=== PATIENT | male | born 1970 | race Caucasian/White ===

== ENCOUNTER 2017-11-29 16:58 | Emergency (ER) | payer MEDICAID ==
--- NOTE | 2017-11-29 17:47 | Emergency Department Record ---
History of Present Illness - General Stated Complaint: RT ANKLE INJ Time Seen by Provider: 11/29/17 17:34 Source: Patient Mode of Arrival: Ambulatory Limitations: No limitations - History of Present Illness Initial Comments: 47 yo male presents to ED for evaluation of right lower extremity pain after injury 1.5 weeks ago. Patient reports that he broke the skin of the anterior lower extremity 1.5 weeks ago while mowing the grass (dull part of the mower), reports pain to the area since his injury. Patient reports previous fracture and ORIF to the ankle approximately 15 years ago as well. Patient reports that he has been able to walk on the leg but that it is painful. Complaint: Leg injury Onset/Timin -: Days(s) Injury: Leg: Right Type of Injury: Blunt Place: Home Severity: Moderate Improves With: Rest Worsens With: Palpation, Weight bearing Context: Direct blow - Related Data Home Medications Medication Instructions Recorded Confirmed Last Taken Aspirin Chewable 81 mg PO NOW 11/29/17 11/29/17 11/29/17 Brexpiprazole [Rexulti] 2 mg PO ASDIR 11/29/17 11/29/17 11/29/17 Clonazepam [Klonopin] 2 mg PO ASDIR 11/29/17 11/29/17 11/29/17 Divalproex Sodium [Depakote] 250 mg PO ASDIR 11/29/17 11/29/17 11/29/17 Hydroxyzine Pamoate [Vistaril] 25 mg PO Q6H 11/29/17 11/29/17 Unknown Levothyroxine Sodium 75 mcg PO DAILY 11/29/17 11/29/17 11/29/17 Lisinopril 20 mg PO DAILY 11/29/17 11/29/17 11/29/17 Terazosin HCl 2 mg PO ASDIR 11/29/17 11/29/17 11/29/17 Trazodone HCl 150 mg PO BID 11/29/17 11/29/17 11/29/17 Venlafaxine HCl [Effexor Xr] 150 mg PO DAILY 11/29/17 11/29/17 11/29/17 Previous Rx's Medication Instructions Recorded Naproxen [Naprosyn] 500 mg PO Q12H #30 tab. 11/29/17 Allergies Allergy/AdvReac Type Severity Reaction Status Date / Time cephalexin [From Keflex] Allergy HIVES Verified 11/29/17 19:10 meperidine [From Demerol] AdvReac ALTERED Verified 11/29/17 19:10 MENTAL STATUS Review of Systems Constitutional: Denies: Chills, Fever, Malaise, Night sweats Eyes: Denies: Eye discharge, Eye pain ENT: Denies: Congestion, Ear pain, Epistaxis Respiratory: Denies: Cough, Dyspnea Cardiovascular: Denies: Chest pain, Dyspnea on exertion Endocrine: Denies: Fatigue, Heat or cold intolerance Gastrointestinal: Denies: Abdominal pain, Nausea, Vomiting Genitourinary: Denies: Incontinence, Retention Musculoskeletal: Reports: Arthralgia. Denies: Back pain, Gout, Joint swelling Skin: Denies: Bruising, Change in color Neurological: Denies: Abnormal gait, Confusion, Headache Psychiatric: Denies: Anxiety Hematological/Lymphatic: Denies: Anemia, Blood Clots Physical Exam - General General Appearance: Alert, Oriented x3, Cooperative, Mild distress Limitations: No limitations - Head Head exam: Atraumatic, Normocephalic, Normal inspection Head exam detail: negative: Abrasion, Contusion, Cartagena's sign, General tenderness, Hematoma, Laceration - Eye Eye exam: Normal appearance. negative: Conjunctival injection, Periorbital swelling, Periorbital tenderness, Scleral icterus - ENT Ear exam: negative: Auricular hematoma, Auricular trauma Nasal Exam: negative: Active bleeding, Discharge, Dried blood, Foreign body Mouth exam: negative: Drooling, Laceration, Muffled voice, Tongue elevation - Neck Neck exam: Normal inspection. negative: Meningismus, Tenderness - Respiratory Respiratory exam: Normal lung sounds bilaterally. negative: Respiratory distress, Rhonchi, Stridor, Wheezes - Cardiovascular Cardiovascular Exam: Regular rate, Normal rhythm, Normal heart sounds - GI/Abdominal GI/Abdominal exam: Soft. negative: Rebound, Rigid, Tenderness - Rectal Rectal exam: Deferred - exam: Deferred - Extremities Extremities exam: Tenderness, Other (Healing 1.0 cm lesion to the anterior lower extremity just proximal to the ankle, mild STS to the area without fluctuance, no erythema, mild TTP over the ankle both medially and laterally with very mild edema present.). negative: Calf tenderness, Pedal edema - Back Back exam: Denies: CVA tenderness (R), CVA tenderness (L) - Neurological Neurological exam: Alert, Normal gait, Oriented X3 - Psychiatric Psychiatric exam: Normal affect, Normal mood - Skin Skin exam: Abrasion (as described above), Normal color Type of lesion: abrasion Course - Reevaluation(s) Reevaluation #1: 11/29/17 17:48 Patient was seen and examined, no evidence for infection on examination, mild scar forming. Due to the patient's tenderness, will obtain radiographs to exclude fracture, FB , and to visualize the patient's underlying hardware. Patient agrees with the plan of care as discussed. Reevaluation #2: 11/29/17 19:33 Right ankle: Degenerative changes/post-op changes present, no acute fracture Right Lower Leg: Degenerative changes, nothing acute Patient was updated on all results, he is ambulating with steady gait and well appearing on examination. There is no clinical evidence for infection on examination, and the patient appears stable for discharge with continued symptomatic care at home. Disposition Disposition: Discharge Clinical Impression: Contusion, lower leg Qualifiers: Encounter type: initial encounter Laterality: right Qualified Code(s): S80.11XA - Contusion of right lower leg, initial encounter Disposition: Home, Self-Care Condition: (2) Stable Instructions: Contusion in Adults (ED) Additional Instructions: Return to ED if your symptoms worsen or if you have any concerns. Naprosyn as directed. Follow-up with your family doctor in 3-5 days as directed. Prescriptions: Naproxen [Naprosyn] 500 mg PO Q12H #30 tab.dr Forms: Patient Portal Access Time of Disposition: 19:36 Quality - Quality Measures Quality Measures: N/A - Blood Pressure Screening Does Patient Have Any of the Following: No Blood Pressure Classification: Hypertensive Reading Systolic Measurement: 128 Diastolic Measurement: 93 Screening for High Blood Pressure: < First Hypertensive BP, F/U Documented > [ [id number]] First Hypertensive Follow-up Interventions: Referral to alternative/primary care provider.
--- NOTE | 2017-11-30 07:54 | RADIOLOGY REPORT ---
EXAM: RIGHT ANKLE, THREE VIEWS HISTORY: PATIENT HAD INJURY. TECHNIQUE: Three views of the right ankle are provided without comparison examination. FINDINGS: There is no radiographic evidence of a fracture or dislocation of the right ankle. The ankle mortise is intact. No significant soft tissue swelling is noted. Moderate osteoarthritic changes of the right ankle are noted. Irregular contour of the distal fibula is identified which may represent old healed fracture. IMPRESSION: OSTEOARTHRITIC CHANGES OF THE RIGHT ANKLE ARE NOTED WITHOUT RADIOGRAPHIC EVIDENCE OF AN ACUTE PROCESS INVOLVING THE RIGHT ANKLE. IRREGULAR CONTOUR OF THE DISTAL FIBULA IS NOTED DESCRIBED ABOVE. IF THERE IS FURTHER CLINICAL CONCERN THEN MRI OF THE RIGHT ANKLE CAN BE OBTAINED FOR FURTHER EVALUATION. JOB NUMBER: [id number] MTDD
--- NOTE | 2017-11-30 08:01 | RADIOLOGY REPORT ---
EXAM: RIGHT TIBIA AND FIBULA HISTORY: PATIENT HAS A HISTORY OF FALL. TECHNIQUE: Four views of the right tibia and fibula are provided without comparison examination. FINDINGS: There is no radiographic evidence of a fracture or dislocation of the right tibia and fibula. There is irregular contour identified within the distal fibula which may be the result of old, healed fracture. No radiopaque foreign bodies are identified. No significant soft tissue swelling is noted. IMPRESSION: IRREGULAR CONTOUR OF THE DISTAL FIBULA MAY BE THE RESULT OF AN OLD HEALED FRACTURE. THERE IS NO RADIOGRAPHIC EVIDENCE OF AN ACUTE FRACTURE OR DISLOCATION OF THE RIGHT TIBIA AND FIBULA. JOB NUMBER: [id number] [facility]
== END 2017-11-29 20:15 | disposition home or self-care (01) ==
LOC: ER 16:58
DX: S80.11XA Contusion of right lower leg, initial encounter (principal); M25.571 Pain in right ankle and joints of right foot; W22.8XXA Striking against or struck by other objects, initial encounter; Y93.H9 Activity, other involving exterior property and land maintenance, building and construction; Y92.007 Garden or yard of unspecified non-institutional (private) residence as the place of occurrence of the external cause; F17.210 Nicotine dependence, cigarettes, uncomplicated
CPT/HCPCS: 99283